=== PATIENT | male | born 1955 | race Caucasian/White ===

== ENCOUNTER → 2016-04-28 | Outpatient (CLI) | payer BC ==
[~2016-04-28] MED LIST: ALLO100T PO; ALPR0.254 PO; AMLO10TA PO; AMLO10TA2 PO; AMLO5TAB2 PO; AMOX1TAB11 PO; APIX5TAB2 PO; ARIP2TAB3 PO; ARIP5TAB20 PO; ASP81CT PO; ASPI-892 PO; ATEN50TA PO; ATOR20TA66 PO; CEFD300C3 PO; DIGO0.25 PO; DIGO250T PO; DIGO250T15 PO; DIGO250T96 PO; DRON400T PO; ESCI20TA38 PO; ESCI20TA45 PO; ESCI5TAB PO; FISH OIL; FISH1CAP15 PO; FLUC100T6 PO; IBUP-30 PO; LISI1TAB6 PO; LORA1TAB PO; METO25TA PO; METO25TA2 PO; METO25TA6 PO; METO50TA2 PO; MIRT15TA6 PO; NEOM10DR42 LEFT EAR; NYST1000 PO; OMEG1CAP51 PO; OMEP40CA36 PO; OXYC-465 PO; SILD20TA14 PO; SILD20TA2 PO; SULF1TAB35 PO
--- OUTSIDE RECORDS SUMMARY | 2016-04-28 13:21 | XMS REPORT | Continuity of Care Document ---
Author Author [facility] Organization [facility] Address Unknown Phone Unavailable Care Team Providers Care Voltage Tester Name Role Phone No Pcp, Na PCP Unavailable Source Comments Some departments are not documenting in the electronic medical record. If you do not see the information that you expected, contact Release of Information in the Health Information Management department at [phone] for further assistance in locating additional records.[facility] Active Allergies and Adverse Reactions No Known Allergies Current Medications Prescription Sig. Disp. Refills Start End Date Status Date ARIPiprazole (ABILIFY) 2 Take 2 mg by mouth daily. Active mg tablet amLODIPine (NORVASC) 10 Take 10 mg by mouth Active mg tablet daily. sildenafil(+) (VIAGRA) 25 Take 25 mg by mouth as Active mg tablet Needed for Erectile dysfunction. allopurinol (ZYLOPRIM) Take 100 mg by mouth Active 100 mg tablet daily. apixaban (ELIQUIS) 5 mg Take 5 mg by mouth twice Active tab tablet daily. fish oil /omega-3 fatty Take 1 Cap by mouth Active acids (SEA-OMEGA) daily. 340/1000 mg capsule lisinopril/hydrochlorothi Take by mouth daily. Active azide (ZESTORETIC) 10/12.5 mg tablet ibuprofen (MOTRIN) 400 mg Take 400 mg by mouth Active tablet every 6 hours as needed for Pain. escitalopram oxalate Take 20 mg by mouth Active (LEXAPRO) 20 mg tablet daily. atorvastatin (LIPITOR) 20 Take 20 mg by mouth Active mg tablet daily. omeprazole DR(+) Take 40 mg by mouth Active (PRILOSEC) 40 mg capsule daily. ALPRAZolam (XANAX) 0.25 Take 0.25 mg by mouth at Active mg tablet bedtime as needed. Active Problems Problem Noted Date Essential hypertension 09/28/2014 Chronic anticoagulation 09/28/2014 Overview: Eliquis Atrial fibrillation (HCC) 09/28/2014 Overview: 01/09/2014 - RAIMUNDO + DCCV to restore NSR ([facility]) 07/2014 - RAIMUNDO + DCCV to restore NSR ([facility]) HLD (hyperlipidemia) 09/28/2014 Anxiety 09/28/2014 Cardiac device in situ 09/28/2014 Overview: 07/27/2014 - LINQ insertion Fatigue 09/28/2014 Overview: Continued fatigue after beta kenia titrated off, Multaq stopped on 08/28/2014 Social History Tobacco Use Types Packs/Day Years Used Date Never Smoker Smokeless Tobacco: Never Used Alcohol Use Drinks/Week oz/Week Comments No Last Filed Vital Signs Vital Sign Reading Time Taken Blood Pressure 100/74 10/04/2014 9:31 AM CDT Pulse 70 10/04/2014 9:30 AM CDT Temperature - - Respiratory Rate - - Height 1.854 m (6' 0.99") 10/04/2014 9:30 AM CDT Weight 103.874 kg (229 lb) 10/04/2014 9:30 AM CDT Body Mass Index 30.22 10/04/2014 9:30 AM CDT Oxygen Saturation - - Plan of Care Health Maintenance Due Date Last Done Comments Physical (Comprehensive) 1962 Exam Pertussis Vaccine 1964 Tetanus Vaccine 1970 Colorectal Cancer 10/18/2003 Screening Shingles Vaccine 2013 Influenza Vaccine 11/07/2015 Results from Last 3 Months Not on file
--- NOTE | 2016-04-28 14:17 | Diagnostic Imaging Report ---
Hepatic ultrasound. INDICATION: Abnormal lab work. There are no previous ultrasound examinations available for comparison. FINDINGS: The CT examination of the abdomen and pelvis performed on 08/01/2007 failed to show any sign of an acute abnormality of the liver. The liver did not appear to be enlarged and there is no focal mass involving the liver. On this study, the liver is prominent measuring 18 cm in maximum dimension. The liver is also more echogenic than usually seen and this appearance does suggest fatty metamorphosis. There is no focal mass involving the liver and the biliary tree is not abnormally dilated. There is no evidence for cholelithiasis or acute cholecystitis. The common bile duct was obscured by bowel gas, however. The right kidney is generally unremarkable. The kidney measures 11.8 x 6.5 x 5.9 cm. In the midportion of the kidney, there is a 1.4 x 1.4 x 1.2 cm cyst. There also appears to be a small 1 x 1 x 0.8 cm cyst along the superior pole of right kidney. These cysts were difficult to appreciate on the previous CT exam. , The pancreas and proximal aorta are obscured by bowel gas. IMPRESSION: 1. The liver is prominent and echogenic appearance of liver does suggest fatty metamorphosis. There is no focal mass involving the liver, however, and the biliary tree is not abnormally dilated. 2. There is no evidence for cholelithiasis or acute cholecystitis. The common bile duct was obscured. 3. There are two small benign-appearing cysts associated with the right kidney. The right kidney is otherwise unremarkable. Dictated by: Dictated on workstation # [id number]
== END ==
LOC: RAD 09:21
PROVIDERS: ATTEND Internal Medicine
DX: R94.5 Abnormal results of liver function studies (principal); N28.1 Cyst of kidney, acquired
CPT/HCPCS: 76705

== ENCOUNTER 2017-01-04 09:29 | Outpatient (CLI) | payer BC ==
[~2017-01-04] VITALS: Ht 185.4 cm; Wt 112.0 kg
[2017-01-04] MEDS ORDERED: LISI1TAB6 PO (09:31)
[2017-01-04] MEDS ORDERED: OMG1KC PO (09:31)
[2017-01-04] MEDS ORDERED: MIRT30TA6 PO (09:31)
[2017-01-04] MEDS ORDERED: ASPI-586 PO (09:31)
== END 2017-01-04 10:15 ==
LOC: PREOP 09:29
PROVIDERS: ATTEND Surgery
DX: Z01.818 Encounter for other preprocedural examination (principal); Z12.11 Encounter for screening for malignant neoplasm of colon

== ENCOUNTER 2017-01-06 11:25 | Day surgery (SDC) | payer BC ==
[~2017-01-06 11:25] MED LIST changes: +ASPI-586 PO; +MIRT30TA6 PO; +OMG1KC PO
[2017-01-06 11:30] VITALS: BP 134/88
[2017-01-06] MEDS ORDERED: NS IV 500 ML 500 ML IV PRN (11:37)
--- NOTE | 2017-01-06 11:40 | Conscious Sedation/ASA ---
Conscious Sedation Pre-Proced Time Reviewed: 11:30 ASA Class: 2 Airway Mallampati Classification: ([place] appropriate class) I. II. III, IV Lungs Heart ASA score ASA 1: a normal healthy patient ASA 2: a patient with a mild systemic disease (mid diabetes, controlled hypertension, obesity ASA 3: a patient with a severe systemic disease that limits activity (angina , COPD, prior Myocardial infarction) ASA 4: a patient with an incapacitating disease that is a constant threat to life (CHF, renal failure) ASA 5: a moribund patient not expected to survive 24 hrs. (ruptured aneurysm) ASA 6: a declared brain patient whose organs are being harvested. For emergent operations, add the letter E after the classification Grade 2 Sedation Plan: Analgesia, Amnesia, Plan communicated to team members, Discussed options with patient/fam, Discussed risks with patient/fam Note The patient is an appropriate candidate to undergo the planned procedure, sedation, and anesthesia. The patient immediately re-assessed prior to indication. MARIAELENA WILBURN MD Jan 06, 2017 11:40 am
--- NOTE | 2017-01-06 11:41 | Progress Note-Pre Operative ---
Pre-Operative Progress Note H&P Reviewed The H&P was reviewed, patient examined and no changes noted. Date Seen by Provider: Jan 06, 2017 Time Seen by Provider: 11:30 Date H&P Reviewed: Jan 06, 2017 Time H&P Reviewed: 11:30 Pre-Operative Diagnosis: screening colonoscopy MARIAELENA WILBURN MD Jan 06, 2017 11:41 am
[2017-01-06] MEDS ORDERED: ACETAMINOPHEN 325 MG TABLET/CAPLET (TYLENOL) PO PRN (11:45)
[2017-01-06] MEDS ORDERED: morphine INJ 10 MG/ML 1ML (SYR OR VIAL) IV PRN (11:45)
[2017-01-06] MEDS ORDERED: LIDOCAINE JELLY 2% (XYLOCAINE) 5 ML TUBE MM PRN (11:45)
[2017-01-06] MEDS ORDERED: ONDANSETRON 4 MG/2 ML (SDV) Z0FRAN IV PRN (11:45)
[2017-01-06] MEDS ORDERED: HYDROcodone/APAP 5 MG/325 MG (LORTAB) TAB PO PRN (11:45)
--- OUTSIDE RECORDS SUMMARY | 2017-01-06 12:03 | XMS REPORT | Clinical Summary ---
Author Author [facility] Organization [facility] Address Unknown Phone Unavailable Care Team Providers Care Ip Attorney Name Role Phone PCP Unavailable Source Comments Some departments are not documenting in the electronic medical record. If you do not see the information that you expected, contact Release of Information in the Health Information Management department at [phone] for further assistance in locating additional records.[facility] Allergies No Known Allergies Current Medications Prescription Sig. [...] kenia titrated off, Multaq stopped on 08/28/2014 Family History Medical History Relation Name Comments Hypertension Father Cancer Mother Relation Name Status Comments Father Mother Social History Tobacco Use Types Packs/Day Years Used Date Never Smoker Smokeless Tobacco: Never Used Alcohol Use Drinks/Week oz/Week Comments No Sex Assigned at Date Recorded Not on file Last Filed Vital Signs Vital Sign Reading Time Taken Blood Pressure 100/74 10/04/2014 9:31 AM CDT Pulse 70 10/04/2014 9:30 AM CDT Temperature - - Respiratory Rate - - Oxygen Saturation - - Inhaled Oxygen - - Concentration Weight 103.9 kg (229 lb) 10/04/2014 9:30 AM CDT Height 185.4 cm (6' 0.99") 10/04/2014 9:30 AM CDT Body Mass Index 30.22 10/04/2014 9:30 AM CDT Plan of Treatment Health Maintenance Due Date Last Done Comments HEPATITIS C SCREENING 1955 PHYSICAL (COMPREHENSIVE) 1962 EXAM PERTUSSIS VACCINE 1964 TETANUS VACCINE 1970 COLORECTAL CANCER 10/18/2003 SCREENING SHINGLES VACCINE 2013 INFLUENZA VACCINE 10/06/2016 Results Not on filefrom Last 3 Months
[2017-01-06] MEDS ORDERED: fentaNYL INJECTION 100 MCG/2 ML AMP ONE (12:37)
[2017-01-06] MEDS ORDERED: MIDAZOLAM 2 MG/2 ML (VERSED) VIAL ONE ×4 (12:37→12:38)
[2017-01-06] MEDS ORDERED: LIDOCAINE JELLY 2% (XYLOCAINE) 5 ML TUBE ONE (12:37)
[2017-01-06] MEDS: fentaNYL INJECTION 100 MCG/2 ML AMP IVP PRN ×2 (12:52→13:17)
[2017-01-06] MEDS: MIDAZOLAM 2 MG/2 ML (VERSED) VIAL IVP PRN ×4 (12:53→13:27)
--- NOTE | 2017-01-06 13:42 | Progress Note-Post Operative ---
Post-Operative Progess Note Surgeon (s)/Snack Foods Mixer Operator (s) Surgeon MARIAELENA WILBURN MD Snack Foods Mixer Operator: none Pre-Operative Diagnosis screening colonoscopy Post-Operative Diagnosis mild sigmoid diverticulosis, transverse colon polyp. Procedure & Operative Findings Date of Procedure 01/06/17 Procedure Performed/Findings Colonoscopy with bx. Anesthesia Type CS Estimated Blood Loss Estimated blood loss (mL): minmal Specimens/Packing Specimens Removed transverse colon polyp MARIAELENA WILBURN MD Jan 06, 2017 1:42 pm
--- NOTE | 2017-01-06 13:44 | Discharge Inst-Surgical ---
D/C Lap Instructions-COSMO Follow Up 10 years. Activity as tolerated High Fiber Diet 25g or more per day Avoid Alcohol, Caffeine, Spicy Cherry Fork and Acid foods. Drink 64 fluid oz or more of fluids per day. Symptoms to Report: Fever over 101 degree F, Nausea/Vomiting If any problems/questions: Contact your physician or go to Emergency Room MARIAELENA WILBURN MD Jan 06, 2017 1:44 pm
[2017-01-06 14:00] VITALS: BP 117/72
[2017-01-06 14:25] VITALS: BP 114/79
[2017-01-06 14:30] VITALS: BP 114/79
== END 2017-01-06 14:30 | disposition home or self-care (01) ==
LOC: ENDO 11:25
PROVIDERS: ATTEND Surgery
DX: Z12.11 Encounter for screening for malignant neoplasm of colon (principal); D12.3 Benign neoplasm of transverse colon; K57.30 Diverticulosis of large intestine without perforation or abscess without bleeding; I48.91 Unspecified atrial fibrillation; F32.9 Major depressive disorder, single episode, unspecified; F41.9 Anxiety disorder, unspecified; K21.9 Gastro-esophageal reflux disease without esophagitis; I10 Essential (primary) hypertension; E78.5 Hyperlipidemia, unspecified; N40.0 Benign prostatic hyperplasia without lower urinary tract symptoms; K76.0 Fatty (change of) liver, not elsewhere classified; Z79.899 Other long term (current) drug therapy; Z79.82 Long term (current) use of aspirin

== ENCOUNTER → 2018-06-07 | Outpatient (CLI) | payer BC ==
[~2018-06-07] MED LIST changes: -AMLO10TA2 PO; +AMLO10TA7 PO
== END ==
LOC: CARD 12:16
PROVIDERS: ATTEND Physician Assistant
DX: I48.0 Paroxysmal atrial fibrillation (principal); I10 Essential (primary) hypertension; E78.5 Hyperlipidemia, unspecified; G47.33 Obstructive sleep apnea (adult) (pediatric); I34.0 Nonrheumatic mitral (valve) insufficiency
CPT/HCPCS: 93306

== ENCOUNTER → 2019-01-04 | Outpatient (CLI) | payer MEDICARE, OTHER ==
[~2019-01-04] VITALS: Ht 183 cm; Wt 120.0 kg
[~2019-01-04] MED LIST changes: +CATHETER FLUSH 10 ML SYR IV PRN
[2019-01-04 09:18] VITALS: BP 129/94
--- NOTE | 2019-01-04 17:13 | STRESS TEST ---
DATE OF SERVICE: 01/04/2019 EXERCISE MYOVIEW STRESS TEST REPORT REFERRING PHYSICIAN: Shakeel España MD Baseline heart rate is 60. Baseline blood pressure 115/84. Baseline EKG is sinus rhythm with no ischemic changes. In summary, the patient was injected with 10.63 mCi of technetium-99 Myoview and the resting images were obtained. Then, the patient started exercising with a baseline heart rate, blood pressure and EKG mentioned above. The patient had frequent PVCs and ventricular bigeminy during exercise. Was able to exercise for a total of 5 minutes 45 seconds on standard Dino protocol. With peak exercise level, EKG was showing frequent PVCs/ventricular bigeminy with no acute ischemic changes. During recovery, heart rate and blood pressure returned to baseline. EKG returned to baseline. The resting and stress images were reviewed and compared in the short axis, horizontal long axis, and vertical long axis views. Review of the images showed diaphragmatic attenuation with decreased uptake involving the whole inferior wall and inferoapical segment with mild reversibility. SSS is 2, SDS 2, TID value 0.93. On the gated images, the left ventricle appeared to be normal size with normal contractility. Calculated ejection fraction 52%. CONCLUSION: 1. Fair exercise tolerance for a total of 5 minutes 45 seconds on standard Dino protocol, total of 7.1 METs achieving 85% of maximum expected heart rate. 2. Severe hypertensive response to exercise, returned to baseline during recovery with peak blood pressure 191/86. 3. Frequent PVCs and ventricular bigeminy induced by exercise, returned to baseline during recovery. 4. Diaphragmatic attenuation with nondiagnostic SPECT images, mild decreased uptake at the inferior wall with mild reversibility. 5. Normal left ventricular size with normal contractility. Calculated ejection fraction of 52%. Job ID: [id number] DocumentID: [id number] Dictated Date: 01/04/2019 15:01:14 Zipper Setter Chainstitch Date: 01/04/2019 17:13:18 Dictated By: DAVID MORRIS MD
== END ==
LOC: CARD 07:21
PROVIDERS: ATTEND Physician Assistant
DX: I48.91 Unspecified atrial fibrillation (principal); I10 Essential (primary) hypertension; E78.5 Hyperlipidemia, unspecified; G47.33 Obstructive sleep apnea (adult) (pediatric); I49.3 Ventricular premature depolarization
CPT/HCPCS: 78452; 93017

== ENCOUNTER 2019-01-25 09:04 | Day surgery (SDC) | payer MEDICARE, OTHER ==
[~2019-01-25] VITALS: Ht 185 cm; Wt 120.0 kg
[~2019-01-25 09:04] MED LIST changes: -CATHETER FLUSH 10 ML SYR IV PRN
[2019-01-25] MEDS ORDERED: LIDOCAINE 1% INJ 20 ML 20 ML VIAL ONE (09:14)
[2019-01-25] MEDS ORDERED: LIDOCAINE 1% INJ 20 ML 20 ML VIAL INJ ONE (09:15)
[2019-01-25 09:24] VITALS: BP 139/89
--- NOTE | 2019-01-25 10:11 | Implantation of Loop Monitor ---
Implant of Loop Monitior IMPLANTATION OF LOOP MONITOR REPORT DATE OF PROCEDURE: 01/25/19 PREOP DIAGNOSIS: paroxysmal atrial fibrillation POSTOP DIAGNOSIS: paroxysmal atrial fibrillation PROCEDURE DETAILS: The patient is a 63 male with history of paroxysmal atrial fibrillation requiring long-term surveillance. Therefore implantable loop recorder was discussed and agreed with the patient. Informed consent was taken. All risks and complications were discussed at length. The patient was draped and prepped in the usual sterile fashion. Local anesthesia was lidocaine, which was given in the substernal area close to the 4th intercostal space. Loop monitor [employer] Serial Number [id number] was implanted according to the protocol. Steri-Strips were placed at the end of the procedure. There were no complications and the patient tolerated the procedure well. The device was interrogated with a voltage of. ANESTHESIA: Local anesthesia with lidocaine. COMPLICATIONS: None CONTRAST/FLUOROSCOPY: None CONCLUSION: Successful implantation of loop recorder with no complication FINAL DIAGNOSIS: Paroxysmal atrial fibrillation Palpitation Hypertension Hyperlipidemia DAVID MORRIS MD Jan 25, 2019 10:11 POS
[2019-01-25 10:28] VITALS: BP 139/89
== END 2019-01-25 10:39 | disposition home or self-care (01) ==
LOC: CATH 09:04
PROVIDERS: ATTEND Internal Medicine Cardiovascular Disease
DX: I48.0 Paroxysmal atrial fibrillation (principal); R00.2 Palpitations; I10 Essential (primary) hypertension; E78.5 Hyperlipidemia, unspecified; F41.9 Anxiety disorder, unspecified; F32.9 Major depressive disorder, single episode, unspecified; I65.23 Occlusion and stenosis of bilateral carotid arteries; K21.9 Gastro-esophageal reflux disease without esophagitis; N40.0 Benign prostatic hyperplasia without lower urinary tract symptoms; J30.2 Other seasonal allergic rhinitis; G47.33 Obstructive sleep apnea (adult) (pediatric); Z79.899 Other long term (current) drug therapy; Z79.82 Long term (current) use of aspirin
CPT/HCPCS: 33285

== ENCOUNTER → 2020-06-17 | Outpatient (CLI) | payer MEDICARE, OTHER ==
[~2020-06-17] MED LIST changes: +ALPR.25T PO; +AMLO-251 PO; -AMLO10TA7 PO; -ARIP5TAB20 PO; +ARIP5TAB57 PO; +ESCI20TA39 PO; -ESCI20TA45 PO; +LISI1TAB29 PO; +OMEP40CA27 PO; -OXYC-465 PO; +OXYC-556 PO
--- NOTE | 2020-06-17 09:41 | Diagnostic Imaging Report ---
EXAMINATION: US Abdomen limited. TECHNIQUE: Multiple real-time grayscale images were obtained over the right upper quadrant in various projections. REASON FOR EXAM: Elevated liver enzymes. COMPARISON: 04/28/2016.. FINDINGS: The liver is normal in size and shape. The liver echogenicity is within normal limits. A simple appearing hepatic cyst is seen in the dome of the liver measuring 1.2 x 0.9 cm. No intrahepatic biliary dilatation is present. The common bile duct is not dilated and measures 4 mm. The main portal vein is hepatopedal. No ascites is seen in the upper abdomen. There is no evidence of cholelithiasis, gallbladder wall thickening or pericholecystic fluid. Sonographic Dotson's sign is negative. The visualized portion of the head of the pancreas are within normal limits. The body and tail of the pancreas are not well visualized due to overlying bowel gas. The visualized portions of the IVC and aorta appear normal. The right kidney measures approximately 11.9 cm in length. Simple cortical cysts are seen in the kidney. No hydronephrosis or renal calculi. IMPRESSION: 1. No cholelithiasis or acute cholecystitis. 2. Simple hepatic cyst in the dome of the liver. No focal hepatic lesions. No intrahepatic biliary dilation. Dictated by: Dictated on workstation # [id number]
== END ==
LOC: RAD 08:00
PROVIDERS: ATTEND Internal Medicine
DX: K76.89 Other specified diseases of liver (principal); R94.5 Abnormal results of liver function studies
CPT/HCPCS: 76705

== ENCOUNTER 2021-03-24 10:59 | Outpatient (CLI) | payer MEDICARE, OTHER ==
[~2021-03-24] VITALS: Ht 73 cm; Wt 113.3 kg
[~2021-03-24 10:59] MED LIST changes: -LISI1TAB29 PO; +LISI1TAB44 PO; +MIRT-68 PO; +MIRT-69 PO; -MIRT15TA6 PO; -MIRT30TA6 PO; -OMEP40CA27 PO; +OMEP40CA6 PO; -SULF1TAB35 PO; +SULF1TAB38 PO
[2021-03-24 11:14] VITALS: BP 123/84
[2021-03-24] MEDS ORDERED: ACETAMINOPHEN 500 MG TAB (TYLENOL) PO PRN (11:15)
[2021-03-24] MEDS ORDERED: EPINEPHrine INJECTION 1 MG/ML AMP IM PRN (11:15)
[2021-03-24] MEDS ORDERED: ONDANSETRON 4 MG/2 ML (SDV) Z0FRAN IV PRN (11:15)
[2021-03-24] MEDS ORDERED: CASIRIVIMAB/IMDEVIMAB 1,200 MG in NS (IVPB) 250 ML IV ONE (11:15)
[2021-03-24] MEDS ORDERED: diphenhydrAMINE 50 MG/ML INJ (BENADRYL) IV PRN (11:15)
[2021-03-24 11:36] VITALS: BP 123/84
[2021-03-24 12:46] VITALS: BP 107/75
== END 2021-03-24 12:47 ==
LOC: INFUSION 10:59
PROVIDERS: ATTEND Nurse Practitioner Family
DX: U07.1 COVID-19 (principal); J44.9 Chronic obstructive pulmonary disease, unspecified; E11.22 Type 2 diabetes mellitus with diabetic chronic kidney disease; N18.9 Chronic kidney disease, unspecified; E66.01 Morbid (severe) obesity due to excess calories; E66.9 Obesity, unspecified; Z68.33 Body mass index [BMI] 33.0-33.9, adult

== ENCOUNTER → 2022-04-07 | Outpatient (CLI) | payer MEDICARE, OTHER ==
[~2022-04-07] MED LIST changes: +FLUC100T10 PO; -FLUC100T6 PO
== END ==
LOC: CARD 08:56
PROVIDERS: ATTEND Internal Medicine Cardiovascular Disease
DX: I35.1 Nonrheumatic aortic (valve) insufficiency (principal); I48.0 Paroxysmal atrial fibrillation
CPT/HCPCS: 93306

== ENCOUNTER → 2022-05-06 | Outpatient (CLI) | payer MEDICARE, OTHER ==
[~2022-05-06] MED LIST changes: +CATHETER FLUSH 10 ML SYR IVP PRN
[2022-05-06 08:53] VITALS: BP 129/78
--- NOTE | 2022-05-06 14:07 | Cardiology Stress Test Report ---
Stress Test Report Date of Procedure/Referring: Date of Procedure: May 06, 2022 PCP Jelly Naidu MD Admitting Physician Admitting Physician: Attending Physician: Josh García MD Baseline Heart Rate: 75 Baseline Blood Pressure: Blood Pressure Systolic: 129 Blood Pressure Diastolic: 78 Vital Signs Date Time Temp Pulse Resp B/P (MAP) Pulse Ox O2 Delivery O2 Flow Rate FiO2 05/06/22 08:53 75 129/78 (95) Baseline Vital Signs Vital Signs Date Time Temp Pulse Resp B/P (MAP) Pulse Ox O2 Delivery O2 Flow Rate FiO2 05/06/22 08:53 75 129/78 (95) Baseline EKG: Baseline EKG: NSR Summary: After explaining the procedure and details to the patient, he signed the consent and was brought to the stress nuclear laboratory. Patient exercised on standard Dino protocol, EKG, heart rate and blood pressure were monitored continuously, resting and stress doses of radio tracer were injected, imaging was acquired and reviewed in the short axis, horizontal long axis and vertical long axis views Patient was able to exercise for a total of 7 minutes on Dino protocol, METs 7.1 Maximum heart rate 128 Maximum blood pressure 191/62 Stress EKG, Minimal nondiagnostic changes Recovery EKG, Return to baseline TID: 0.83 SSS: 2 SDS: 1 EF: 49 Conclusion: Fair exercise tolerance for a total of 7 minutes on standard Dino protocol, 7.1 METS achieving 84% of maximal expected heart rate Appropriate heart rate response to exercise with hypertensive response to exercise with peak blood pressure 191/62 return to baseline during recovery Nondiagnostic EKG changes with exercise return to baseline during recovery Diaphragmatic attenuation with mild decrease uptake involving the mid to apical inferior wall with mild reversibility most probably due to diaphragmatic attenuation, mild decrease uptake at the anterior apical segment with mild reversibility. Overall borderline stress test Normal left ventricular size, mild hypokinesia at the apex, ejection fraction 49% Copy Copies To 1: JELLY NAIDU MD, BASHAR J MD May 06, 2022 14:07
== END ==
LOC: CARD 07:45
PROVIDERS: ATTEND Internal Medicine Cardiovascular Disease
DX: I48.0 Paroxysmal atrial fibrillation (principal)
CPT/HCPCS: 78452; 93017; A9502

== ENCOUNTER 2022-11-26 17:53 | Emergency (ER) | payer MEDICARE, OTHER ==
[~2022-11-26] VITALS: Ht 185.4 cm; Wt 115.0 kg
[~2022-11-26 17:53] MED LIST changes: -CATHETER FLUSH 10 ML SYR IVP PRN
--- NOTE | 2022-11-26 18:24 | ED Fall/Injury ---
General Chief Complaint: Chest Wall Stated Complaint: RT SIDE RIB PAIN, RT KNEE ABRASION - FALL Source: patient Exam Limitations: no limitations History of Present Illness Date Seen by Provider: Nov 26, 2022 Time Seen by Provider: 17:58 Initial Comments 67-year-old male with no pertinent past medical history coming in after he tripped last week, landing on his right side now with right-sided rib pain. Pain is constant, better with ibuprofen and Tylenol. Denies any shortness of breath. Pain is worse if he coughs. He last had pain medication this morning. Otherwise denying any other acute complaints. He did not hit his head, did not pass out, no neck or back pain, has been ambulatory since the incident last week. He does not take any blood thinners. Allergies and Home Medications Allergies Coded Allergies: No Known Drug Allergies (Unverified , 01/13/11) Patient Home Medication List Home Medication List Reviewed: Yes ALPRAZolam (Xanax Tablet) 0.25 Mg Tablet, 0.25 MG PO TID PRN for ANXIETY, (Reported) Entered as Reported by: MAYNOR RODRIGUEZ on 12/04/15 1436 Allopurinol (Allopurinol) 100 Mg Tablet, 100 MG PO HS, (Reported) Entered as Reported by: MAYNOR RODRIGUEZ on 12/04/15 1431 Amlodipine Besylate (Amlodipine Besylate) 10 Mg Tablet, 10 MG PO HS, (Reported) Entered as Reported by: MAYNOR RODRIGUEZ on 12/04/15 1431 Aripiprazole (Aripiprazole) 5 Mg Tablet, 5 MG PO HS, (Reported) Entered as Reported by: MAYNOR RODRIGUEZ on 12/04/15 1431 Aspirin (Aspir 81) 81 Mg Tablet.dr, 81 MG PO HS, (Reported) Entered as Reported by: AMY MAIN on 01/04/17 0931 Escitalopram Oxalate (Escitalopram Oxalate) 20 Mg Tablet, 20 MG PO HS, (Reported) Entered as Reported by: MAYNOR RODRIGUEZ on 12/04/15 1436 Hydrocodone/Acetaminophen (Hydrocodone-Acetamin 5-325 mg) 5 Mg-325 Mg Tablet, 1 TAB PO Q6H PRN for PAIN-MODERATE (5-7) Prescribed by: VIDHI GRADY on 11/26/222032 Lisinopril/Hydrochlorothiazide (Lisinopril-Hctz 10-12.5 mg Tab) 1 Each Tablet, 1 EACH PO HS, (Reported) Entered as Reported by: AMY MAIN on 01/04/17930 Mirtazapine (Mirtazapine) 30 Mg Tablet, 30 MG PO HS, (Reported) Entered as Reported by: AMY MAIN on 01/04/17930 [place] 3 Polyunsat Fatty Acids (Fish Oil 1,000 mg Capsule) 1,000 Mg Cap, 1,000 MG PO BID, (Reported) Entered as Reported by: AMY MAIN on 01/04/17930 Omeprazole (Omeprazole) 40 Mg Capsule.dr, 40 MG PO HS, (Reported) Entered as Reported by: MAYNOR RODRIGUEZ on 12/04/15 1431 Review of Systems Review of Systems Constitutional: No fever Eyes: No Symptoms Reported Ears, Nose, Mouth, Throat: no symptoms reported Respiratory: no symptoms reported Cardiovascular: no symptoms reported Gastrointestinal: no symptoms reported Genitourinary: no symptoms reported Musculoskeletal: see HPI Skin: no symptoms reported Psychiatric/Neurological: No Symptoms Reported All Other Systems Reviewed Negative Unless Noted: Yes Past Nwdvsjm-Nwovzi-Udvvyq Hx Patient Social History Tobacco Use?: No Use of E-Cig and/or Vaping dev: No Substance use?: No Alcohol Use?: No Pt feels they are or have been: No Immunizations Up To Date Tetanus Booster (TDap): More than 5yrs PED Vaccines UTD: No Seasonal Allergies Seasonal Allergies: No Past Medical History Orthopedic Respiratory: Yes Sleep Apnea Currently Using CPAP: Yes Currently Using BIPAP: No Cardiac: Yes Atrial Fibrillation, Hypertension Neurological: No Reproductive Disorders: No Sexually Transmitted Disease: No HIV/AIDS: No Kidney Stones Gastrointestinal: Yes Gastroesophageal Reflux Loss of Vision: Denies Hearing Impairment: Denies Cancer: No Anxiety, Depression Blood Disorders: No Adverse Reaction/Blood Tranf: No Family Medical History Alzheimer's disease 19 FATHER Completed stroke G8 BROTHER FH: leukemia 19 MOTHER Hypertension 19 FATHER G8 BROTHER Hypertension Physical Exam Vital Signs Vital Signs - First Documented 11/26/22 18:12 Temp 37.0 Pulse 85 Resp 16 B/P (MAP) 146/88 (107) Pulse Ox 98 O2 Delivery Room Air Capillary Refill : Height, Weight, BMI Height: 6'1.00" Weight: 247lbs. 0.0oz. 112.554620hy; 33.01 BMI Method:Stated General Appearance: WD/WN, no apparent distress HEENT: PERRL/EOMI, normal ENT inspection, pharynx normal Neck: non-tender, full range of motion, supple, normal inspection Cardiovascular: regular rate, rhythm, no edema Respiratory: lungs clear, normal breath sounds, no respiratory distress, no accessory muscle use, other (right sided chest wall pain) Gastrointestinal: normal bowel sounds, non tender, soft; No distended, No guarding, No rebound Back: normal inspection, no CVA tenderness, no vertebral tenderness Extremities: normal range of motion, non-tender, normal inspection, no pedal edema, no calf tenderness, normal capillary refill Neurologic/Psychiatric: no motor/sensory deficits, alert, normal mood/affect, oriented x 3 Skin: normal color, warm/dry Ehsan Coma Score Best Eye Response: (4) Open Spontaneously Best Verbal Response: (5) Oriented Best Motor Response: (6) Obeys Commands Progress/Results/Core Measures Results/Orders My Orders Orders - VIDHI GRADY MD Ct Chest Wo (11/26/22 18:19) Vital Signs/I&O 11/26/22 11/26/22 18:12 19:21 Temp 37.0 36.9 Pulse 85 78 Resp 16 16 B/P (MAP) 146/88 (107) 139/84 Pulse Ox 98 99 O2 Delivery Room Air Room Air Progress Progress Note : Progress Note 67yoM with above history coming in due to right sided chest wall pain after a fall 1 week ago. ABCs were intact and vitals were stable on presentation with a GCS of 15. Physical exam reassuring other than the right-sided chest wall tenderness. I discussed getting an x-ray versus a CT scan. Given that the CT will be more sensitive for potential rib fractures, we will go forward with out. I offered him pain medication, he does not want anything at this time. CT chest negative for any obvious fracture or pneumothorax on my interpretation. Per the radiologist, also negative for any acute findings. There is an incidental finding of thoracic aortic aneurysm of 4-1/2 cm which I made the patient aware of. He should follow-up with an outpatient in regards to this to monitor it. I believe he is stable for discharge with outpatient follow-up. He was sent home with strict return precautions. Diagnostic Imaging Diagonstic Imaging: CT (chest) Comments NAME: HERVE AGUIRRE REC#: [id number] PT STATUS: REG ER : 1955 PHYSICIAN: VIDHI GRADY MD ADMIT DATE: 11/26/22/ER Draft Date of Exam:11/26/22 CT CHEST WO EXAMINATION: CT chest without contrast. TECHNIQUE: Multiple contiguous axial images were obtained through the chest without the use of intravenous contrast. All CT scans use one or more of the following dose optimizing techniques: automated exposure control, MA and/or KvP adjustment based on patient size and exam type or iterative reconstruction. HISTORY: fall, right sided chest wall pain COMPARISON: None available. FINDINGS: Thyroid: The thyroid is normal. Mediastinum: Heart size is normal without significant pericardial effusion. There is aneurysmal dilatation of the ascending thoracic aorta measuring up to 4.5 cm. No suspicious lymphadenopathy. Lungs and airways: The lungs are clear without consolidation, pleural effusion, or pneumothorax. There is minimal atelectasis in the lung bases. The airways are normal. Upper abdomen: There are multiple calcified granulomas within the spleen. Musculoskeletal: Degenerative changes of the spine without suspicious osseous lesion or compression fracture. No acute fracture is seen. IMPRESSION: 1. No acute fracture or other acute abnormality in the chest. Dictated on workstation # [id number] Dict: 11/26/22 1844 Trans: 11/26/22 1849 MARLEEN [id number] Interpreted by: SHERWIN HUGHES DO Electronically signed by: Departure Impression Primary Impression: Contusion of rib on right side Qualified Codes: S20.211A - Contusion of right front wall of thorax, initial encounter Additional Impression: Thoracic aortic aneurysm without rupture Qualified Codes: I71.22 - Aneurysm of the aortic arch, without rupture Disposition: 01 HOME, SELF-CARE Condition: Stable Departure-Patient Inst. Decision time for Depature: 19:05 Referrals: JELLY NAIDU MD (PCP/Family) Primary Care Physician Patient Instructions: Blunt Chest Trauma (DC) Add. Discharge Instructions: Fortunately nothing is broken and everything looks normal on the CT of the chest in regards to trauma. Likely your ribs are bruised. We recommend scheduling ibuprofen and or Tylenol as needed for pain. If you have pain on top of that, you can take the hydrocodone. We did find an incidental finding of slightly dilated aorta in your chest. The definition of this is an aneurysm. This is not something that needs anything done emergently, it just needs to be followed by your regular doctor to be sure it is not getting larger in size. Scripts Hydrocodone/Acetaminophen (Hydrocodone-Acetamin 5-325 mg) 5 Mg-325 Mg Tablet 1 TAB PO Q6H PRN for PAIN-MODERATE (5-7) for 3 Days, #12 TAB Prov: VIDHI GRADY MD 11/26/22 VIDHI GRADY MD Nov 26, 2022 18:24
--- NOTE | 2022-11-26 18:49 | Diagnostic Imaging Report ---
EXAMINATION: CT chest without contrast. TECHNIQUE: Multiple contiguous axial images were obtained through the chest without the use of intravenous contrast. All CT scans use one or more of the following dose optimizing techniques: automated exposure control, MA and/or KvP adjustment based on patient size and exam type or iterative reconstruction. HISTORY: fall, right sided chest wall pain COMPARISON: None available. FINDINGS: Thyroid: The thyroid is normal. Mediastinum: Heart size is normal without significant pericardial effusion. There is aneurysmal dilatation of the ascending thoracic aorta measuring up to 4.5 cm. No suspicious lymphadenopathy. Lungs and airways: The lungs are clear without consolidation, pleural effusion, or pneumothorax. There is minimal atelectasis in the lung bases. The airways are normal. Upper abdomen: There are multiple calcified granulomas within the spleen. Musculoskeletal: Degenerative changes of the spine without suspicious osseous lesion or compression fracture. No acute fracture is seen. IMPRESSION: 1. No acute fracture or other acute abnormality in the chest. Dictated by: Dictated on workstation # [id number]
[2022-11-26] MEDS ORDERED: ACHD5005 PO ×3 (19:12→21:49)
[2022-11-26 19:21] VITALS: BP 139/84
== END 2022-11-26 19:24 | disposition home or self-care (01) ==
LOC: EDUNIT# 17:53 → ER 17:56
DX: S20.211A Contusion of right front wall of thorax, initial encounter (principal); I71.22 Aneurysm of the aortic arch, without rupture; G47.30 Sleep apnea, unspecified; Z99.89 Dependence on other enabling machines and devices; W01.0XXA Fall on same level from slipping, tripping and stumbling without subsequent striking against object, initial encounter
CPT/HCPCS: 71250